=== PATIENT | female | born 1960 | race Hispanic/Latino ===

== ENCOUNTER 2018-08-16 18:47 | Emergency (ER) | payer SELFPAY | END 2018-08-16 21:39 | disposition left against medical advice (07) | LOC: ER 18:47 | DX: R50.9 Fever, unspecified (principal) ==

== ENCOUNTER 2020-02-13 19:21 | Emergency (ER) | payer SELFPAY ==
[~2020-02-13] VITALS: Ht 157.5 cm; Wt 70.3 kg
--- OUTSIDE RECORDS SUMMARY | 2020-02-13 19:24 | XMS REPORT | Continuity of Care Document ---
Author Author [facility] Organization [facility] Address [address] [place] [address] Phone Unavailable Care Team Providers Care Junior Staff Accountant Name Role Phone NO, PCP PCP Unavailable Problems This patient has no known problems. Allergies, Adverse Reactions, Alerts This patient has no known allergies or adverse reactions. Medications This patient has no known medications. Procedures This patient has no known procedures. Encounters Start Date/Time End Date/Time Encounter Type Admission Type [facility] Care Department Encounter ID Source 2018-08-16 18:47:00 2018-08-16 21:39:00 Departed Emergency Room [facility] [id number] [facility] Results Test Description Test Time Test Comments Results Result Comments Source SCR MAMM BILATERAL CODY CAD DIGITAL 2018-09-19 14:43:04 - SCR MAMM BILATERAL CODY CAD DIGITALBILATERAL DIGITAL SCREENING MAMMOGRAM 3D/2D WITH CAD: 09/19/2018CLINICAL: Asymptomatic. Digital breast tomosynthesis was performed in addition to routine CC and MLO views. Current mammographic images were evaluated by either a [employer] M-Vu or a [employer] CAD (computer aided detection system). Comparison is made to exam dated 03/10/2006 mammogram - [facility]. There are scattered fibroglandular tissues in both breasts. There is a benign intramammary node in the right breast. No suspicious mass, architectural distortion, malignant type calcification, or lymph node abnormality detected. Breast architecture is stable compared to prior exams.IMPRESSION: BENIGNThere is no mammographic evidence of malignancy. Resume annual screening mammography in one year. Herminio Franco M.D. ss/penrad:09/19/2018 14:43:04 Thermal Engineer: Lev DANIELSON, [facility] sent: BIRADS 1-2 Normal Mammogram BI-RADS: 2 Benign
[2020-02-13] MEDS ORDERED: SODIUM CHLORIDE 0.9% 1000ML 1,000 ML IV STA (20:01)
--- NOTE | 2020-02-13 20:01 | Emergency Department Note ---
History of Present Illnes History of Present Illness Chief Complaint: General Medicine Complaints History of Present Illness This is a 59 year old female for 5 day h/o of epigastric pain. Seen by PCP and patient was prescribed medication for GERD earlier this week. Seen at bedside NAD . History limited by: language barrier Optomechanical Engineer Required: Yes Onset (how long ago): day(s) (5) Radiation: Reports abdomen Severity: moderate Onset quality: gradual Duration (how long): day(s) (5) Timing of current episode: constant Progression: worsening Context: Reports new medications Relieving factors: medication Exacerbating factors: eating Past Medical/Family History Physician Review I have reviewed the patient's past medical and family history. Any updates have been documented here. Past Medical History Recent Fever: No Clinical Suspicion of Infectio: No New/Unexplained Change in Ment: No Past Medical History: Hypertension Social History Smoking Cessation: Never Smoker Alcohol Use: None Any Illegal Drug Use: No Review of Systems Review of Systems Constitutional: Reports no symptoms EENTM: Reports no symptoms Cardiovascular: Reports no symptoms Respiratory: Reports no symptoms Gastrointestinal: Reports abdominal pain Genitourinary: Reports no symptoms Musculoskeletal: Reports no symptoms Integumentary: Reports no symptoms Neurological: Reports no symptoms Psychological: Reports no symptoms Endocrine: Reports no symptoms Hematological/Lymphatic: Reports no symptoms Review of other systems All other systems reviewed and negative. Physical Exam Related Data Allergies: Coded Allergies: No Known Allergies (Unverified , 02/13/20) Triage Vital Signs Vital Signs Date Time Temp Pulse Resp B/P (MAP) Pulse Ox O2 Delivery O2 Flow Rate FiO2 02/13/20 19:57 99.1 75 16 112/68 98 Vital signs reviewed: Yes Physical Exam CONSTITUTIONAL Constitutional: Reports well-developed, Reports well-nourished HENT HENT: Reports normocephalic, Reports atraumatic, Reports oropharynx clear/ moist, Reports nose normal HENT L/R: Reports left ext ear normal, Reports right ext ear normal EYES Eyes: Reports PERRL, Reports conjunctivae normal NECK Neck: Reports ROM normal PULMONARY Pulmonary: Reports effort normal, Reports breath sounds normal CARDIOVASCULAR Cardiovascular: Reports regular rhythm, Reports heart sounds normal, Reports capillary refill normal, Reports normal rate GASTROINTESTINAL Abdominal: Reports soft, Reports tender (epigastric) GENITOURINARY Genitourinary: Reports exam deferred SKIN Skin: Reports warm, Reports dry MUSCULOSKELETAL Musculoskeletal: Reports ROM normal NEUROLOGICAL Neurological: Reports alert, Reports oriented x 3, Reports no gross motor or sensory deficits PSYCHOLOGICAL Psychological: Reports mood/affect normal, Reports judgement normal Results Laboratory Lab results reviewed: Yes Imaging Imaging results reviewed: Yes Impressions [place] [address] Patient Name: TOMASA MCFADDEN MR #: [id number] : 1960 Age/Sex: 59/F Req #: [id number] Adm Physician: Ordered by: ILEANA JUAREZ DO Report #: [id number] Location: ER Room/Bed: Procedure: [id number] DX/CHEST SINGLE (PORTABLE) Exam Date: 02/13/20 Exam Time: 2109 REPORT STATUS: Signed EXAMINATION: CHEST SINGLE (PORTABLE) INDICATION: ^ERMD ORDER ^[id number] ^2109 ^Y COMPARISON: None FINDINGS: AP view TUBES and LINES: None. LUNGS: Lungs are well inflated. Hazy right lower lung field opacities. PLEURA: No pleural effusion or pneumothorax. HEART AND MEDIASTINUM: The cardiomediastinal silhouette is unremarkable. BONES AND SOFT TISSUES: No acute osseous lesion. Soft tissues are unremarkable. UPPER ABDOMEN: No free air under the diaphragm. IMPRESSION: Hazy right lower lung field opacities, could represent atelectasis versus pneumonia in the appropriate clinical context. Signed by: Dr. Binh Alberts MD on 02/13/2020 9:45 PM Dictated By: BINH ALBERTS MD 44 Transcribed By: DONATO on 02/13/202144 COPY TO: ILEANA JUAREZ DO~ [place] [address] Patient Name: TOMASA MCFADDEN MR #: [id number] : 1960 Age/Sex: 59/F [facility] #: [id number] Req #: [id number] [facility] Physician: Ordered by: ILEANA JUAREZ DO Report #: [id number] Location: Room/Bed: Procedure: [id number] CT/CT ABDOMEN/PELVIS W Exam Date: 02/13/20 Exam Time: 2108 REPORT STATUS: Signed EXAM: CT Abdomen and Pelvis WITH contrast INDICATION: ^epigastric pain ^20200213 ^2108 COMPARISON: None. TECHNIQUE: Abdomen and pelvis were scanned utilizing a multidetector helical scanner from the lung base to the pubic symphysis after administration of IV contrast. Coronal and sagittal reformations were obtained. Dose modulation, iterative reconstruction, and/or weight based adjustment of the mA/kV was utilized to reduce the radiation dose to as low as reasonably achievable. Routine protocol was performed. Scan was performed when during portal venous phase. IV CONTRAST: 100 mL of Omnipaque 370 ORAL CONTRAST: Water COMPLICATIONS: None RADIATION DOSE: Total DLP: 423.93 mGy*cm Estimated effective dose: (DLP x 0.015 x size factor) mSv CTDIvol has been reviewed. It is below the limits set by the Radiation Protocol Committee (RPC). FINDINGS: LINES and TUBES: None. LOWER THORAX: Dependent right lower lobe airspace opacities. There is also partially visualized left upper lobe peripheral hazy opacity. Left basilar linear atelectasis/scarring. HEPATOBILIARY: No focal hepatic lesions. No biliary ductal dilation. GALLBLADDER: No radio-opaque stones or sludge. No wall thickening. SPLEEN: No splenomegaly. PANCREAS: No focal masses or ductal dilatation. ADRENALS: Fat-containing 0.9 cm left adrenal nodule, representing a myelolipoma. No right adrenal nodule. KIDNEYS/URETERS: Kidneys enhance symmetrically. No hydronephrosis. No renal mass. Right renal superior pole subcentimeter hypodensity is too small to characterize. No stones. GI TRACT: No abnormal distention, wall thickening, or evidence of bowel obstruction. Appendix is normal. Proximal duodenal wall focal irregularity (series 2, image 32). PELVIC ORGANS/BLADDER: Unremarkable. LYMPH NODES: No lymphadenopathy. VESSELS: Unremarkable. PERITONEUM / RETROPERITONEUM: No free air or fluid. BONES: Unremarkable. SOFT TISSUES: Unremarkable. IMPRESSION: 1. Bilateral lung airspace opacities, most notable in the dependent right lower lobe, could represent atelectasis versus pneumonia in the appropriate clinical context. 2. Mild focal wall irregularity of proximal duodenum, could represent duodenal ulcer. Recommend GI consult. Otherwise, no acute inflammatory process in the abdomen/pelvis. Signed by: Dr. Binh Alberts MD on 02/13/2020 9:31 PM Dictated By: BINH ALBERTS MD 30 Transcribed By: DONATO on 02/13/202130 COPY TO: ILEANA JUAREZ DO~ Procedures 12 Lead ECG Interpretation ECG Interpretation : ECG: ECG 1 Optomechanical Engineer: Interpreted by ED physician Date: Feb 13, 2020 Time: 20:41 Prior ECG tracings: reviewed Rhythm: sinus rhythm Rate: normal QRS axis: normal ST segments normal: Yes T waves normal: No T waves flattening: V1, V2 Clinical Impression: non-specific ECG Assessment & Plan Medical Decision Making MDM Patient with epigastric pain seen previously by PCP. EKG and cardiac enzymes ordered and reviewed to r/o ACS. CTS ordered to evaluate for any surgical pathology . No acute findings based on lab and imaging studies. Plan to discharge to home with f/u with Gastroenterology. Patient to be given Rx Pepcid . Assessment & Plan Final Impression: (1) Duodenal ulcer Last Vital Signs Date Time Temp Pulse Resp B/P (MAP) Pulse Ox O2 Delivery O2 Flow Rate FiO2 02/13/20 22:25 68 16 97 02/13/20 20:44 107/65 02/13/20 19:57 99.1 Medications in the ED Sodium Chloride 1,000 ml @ 0 mls/hr Q0M STAT IV Last administered on 02/13/20at 20:53; Admin Dose 1,000 MLS/HR; Start 02/13/20 at 20:01; Stop 02/13/20 at 20:04; Status DC Sodium Chloride 50 ml @ ud STK-MED ONCE .ROUTE ; Start 02/13/20 at 20:58; Stop 02/13/20 at 20:53; Status DC Iopamidol 74,000 mg STK-MED ONCE INJ ; Start 02/13/20 at 20:59; Stop 02/13/20 at 20:53; Status DC Morphine Sulfate 4 mg ONCE STAT IV ; Start 02/13/20 at 21:02; Stop 02/13/20 at 21:09; Status DC Ondansetron HCl 4 mg NOW STAT IV Last administered on 02/13/20at 21:34; Admin Dose 4 MG; Start 02/13/20 at 21:02; Stop 02/13/20 at 21:09; Status DC Famotidine 20 mg NOW STAT IV Last administered on 02/13/20at 21:47; Admin Dose 20 MG; Start 02/13/20 at 21:37; Stop 02/13/20 at 21:40; Status DC Ketorolac Tromethamine 30 mg ONCE STAT IV Last administered on 02/13/20at 21:48; Admin Dose 30 MG; Start 02/13/20 at 21:37; Stop 02/13/20 at 21:40; Status DC ILEANA JUAREZ DO Feb 13, 2020 20:01
[2020-02-13 20:19] LABS: BASOPHILS % 0.3 % (0.0-1.0); EOSINOPHILS # (AUTO) 0.1 (0.0-0.4); EOSINOPHILS % 0.9 % (0.0-6.0); HEMATOCRIT 46.6 % (34.2-44.1); HEMOGLOBIN 15.2 g/dL (12.0-16.0); LYMPHOCYTES % 40.8 % (18.0-39.1); MEAN CORPUSCULAR HEMOGLOBIN 28.1 pg (28-32); MEAN CORPUSCULAR HGB CONC 32.6 g/dL (31-35); MEAN CORPUSCULAR VOLUME 86.1 fL (81-99); MONOCYTES # (AUTO) 0.8 (0.2-0.8); MONOCYTES % 10.6 % (4.4-11.3); NEUTROPHILS # (AUTO) 3.5 (2.1-6.9); NEUTROPHILS % 47.1 % (38.7-80.0); PLATELET COUNT 219 x10e3/uL (140-360); RED BLOOD COUNT 5.41 x10e6/uL (3.6-5.1); RED CELL DISTRIBUTION WIDTH 13.3 % (11.7-14.4)
[2020-02-13 20:37] LABS: ALANINE AMINOTRANSFERASE 70 IU/L (0-55); ALBUMIN 4.2 g/dL (3.5-5.0); ALBUMIN/GLOBULIN RATIO 1.1 (0.8-2.0); ALKALINE PHOSPHATASE 57 IU/L (40-150); ANION GAP 16.9 mmol/L (8-16); BLOOD UREA NITROGEN 6 mg/dL (7-26); BUN/CREATININE RATIO 8 (6-25); CALCIUM 10.1 mg/dL (8.4-10.2); CARBON DIOXIDE 22 mmol/L (22-29); CHLORIDE 107 mmol/L (98-107); CREATINE KINASE 51 IU/L (29-168); CREATININE, SERUM 0.78 mg/dL (0.57-1.11); EST GLOMERULAR FILTRATION RATE > 60 ML/MIN (60-); GLUCOSE 89 mg/dL (74-118); POTASSIUM 3.9 mmol/L (3.5-5.1); SODIUM 142 mmol/L (136-145)
[2020-02-13] MEDS ORDERED: SODIUM CHLORIDE 0.9% 50ML 50 ML ONE (20:58)
[2020-02-13] MEDS ORDERED: IOPAMIDOL 370 MG/ML 200 ML INFUS..BTL INJ ONE (20:59)
[2020-02-13] MEDS ORDERED: ONDANSETRON HCL INJ 2MG/ML 2ML 2 MG/ML VIAL IV STA (21:02)
[2020-02-13] MEDS ORDERED: MORPHINE SULFATE INJ 4 MG/ML INJ 1ML IV STA (21:02)
[2020-02-13 21:12] LABS: CLARITY,URINE SL CLOUDY (CLEAR); COLOR,URINE YELLOW (YELLOW); LEUKOCYTE ESTERASE ,URINE TRACE (NEGATIVE); NITRITE,URINE NEGATIVE (NEGATIVE); PROTEIN,URINE DIPSTICK NEGATIVE (NEGATIVE)
[2020-02-13 21:13] LABS: BILIRUBIN,URINE NEGATIVE (NEGATIVE); KETONES,URINE NEGATIVE (NEGATIVE); URINE UROBILINOGEN 0.2 mg/dL (0.2 - 1)
[2020-02-13 21:22] LABS: BACTERIA,URINE MODERATE /HPF; EPITHELIAL CELLS,URINE FEW /LPF; WBC,URINE (MAN) 0-5 /HPF (0-5)
--- NOTE | 2020-02-13 21:35 | Diagnostic Imaging Report ---
EXAM: CT Abdomen and Pelvis WITH contrast INDICATION: ^epigastric pain ^20200213 ^2108 COMPARISON: None. TECHNIQUE: Abdomen and pelvis were scanned utilizing a multidetector helical scanner from the lung base to the pubic symphysis after administration of IV contrast. Coronal and sagittal reformations were obtained. Dose modulation, iterative reconstruction, and/or weight based adjustment of the mA/kV was utilized to reduce the radiation dose to as low as reasonably achievable. Routine protocol was performed. Scan was performed when during portal venous phase. IV CONTRAST: 100 mL of Omnipaque 370 ORAL CONTRAST: Water COMPLICATIONS: None RADIATION DOSE: Total DLP: 423.93 mGy*cm Estimated effective dose: (DLP x 0.015 x size factor) mSv CTDIvol has been reviewed. It is below the limits set by the Radiation Protocol Committee (RPC). FINDINGS: LINES and TUBES: None. LOWER THORAX: Dependent right lower lobe airspace opacities. There is also partially visualized left upper lobe peripheral hazy opacity. Left basilar linear atelectasis/scarring. HEPATOBILIARY: No focal hepatic lesions. No biliary ductal dilation. GALLBLADDER: No radio-opaque stones or sludge. No wall thickening. SPLEEN: No splenomegaly. PANCREAS: No focal masses or ductal dilatation. ADRENALS: Fat-containing 0.9 cm left adrenal nodule, representing a myelolipoma. No right adrenal nodule. KIDNEYS/URETERS: Kidneys enhance symmetrically. No hydronephrosis. No renal mass. Right renal superior pole subcentimeter hypodensity is too small to characterize. No stones. GI TRACT: No abnormal distention, wall thickening, or evidence of bowel obstruction. Appendix is normal. Proximal duodenal wall focal irregularity (series 2, image 32). PELVIC ORGANS/BLADDER: Unremarkable. LYMPH NODES: No lymphadenopathy. VESSELS: Unremarkable. PERITONEUM / RETROPERITONEUM: No free air or fluid. BONES: Unremarkable. SOFT TISSUES: Unremarkable. IMPRESSION: 1. Bilateral lung airspace opacities, most notable in the dependent right lower lobe, could represent atelectasis versus pneumonia in the appropriate clinical context. 2. Mild focal wall irregularity of proximal duodenum, could represent duodenal ulcer. Recommend GI consult. Otherwise, no acute inflammatory process in the abdomen/pelvis. Signed by: Dr. Binh Alberts MD on 02/13/2020 9:31 PM
[2020-02-13] MEDS ORDERED: FAMOTIDINE 20 MG/2 ML VIAL IV STA (21:37)
[2020-02-13] MEDS ORDERED: KETOROLAC TROMETHAMINE 30 MG/ML VIAL IV STA (21:37)
--- NOTE | 2020-02-13 21:49 | Diagnostic Imaging Report ---
EXAMINATION: CHEST SINGLE (PORTABLE) INDICATION: ^ERMD ORDER ^[id number] ^2109 ^Y COMPARISON: None FINDINGS: AP view TUBES and LINES: None. LUNGS: Lungs are well inflated. Hazy right lower lung field opacities. PLEURA: No pleural effusion or pneumothorax. HEART AND MEDIASTINUM: The cardiomediastinal silhouette is unremarkable. BONES AND SOFT TISSUES: No acute osseous lesion. Soft tissues are unremarkable. UPPER ABDOMEN: No free air under the diaphragm. IMPRESSION: Hazy right lower lung field opacities, could represent atelectasis versus pneumonia in the appropriate clinical context. Signed by: Dr. Binh Alberts MD on 02/13/2020 9:45 PM
[2020-02-13 22:25] VITALS: BP 119/65
== END 2020-02-13 22:26 | disposition home or self-care (01) ==
LOC: ER 19:21
DX: R10.13 Epigastric pain (principal); K26.9 Duodenal ulcer, unspecified as acute or chronic, without hemorrhage or perforation; R91.8 Other nonspecific abnormal finding of lung field
CPT/HCPCS: 36415; 71045; 74177; 80053; 81001; 82550; 82553; 83880; 84484; 85025; 93005; 99284; J1885; J2270; J2405; J7030; Q9967